=== PATIENT | female | born 1975 | race African-American/Black ===

== ENCOUNTER 2019-11-05 00:33 | Emergency (ER) | payer MEDICAID ==
[~2019-11-05] VITALS: Ht 175.3 cm; Wt 122.7 kg
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
[2019-11-05] MEDS ORDERED: HYDROcodon/IBUPROFEN 7.5/200MG 1 TAB TABLET PO ONE (01:30)
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
[2019-11-05] MEDS ORDERED: IV RINGERS SOLUTION,LACTATED 1,000 ML IV SCH (02:00)
[2019-11-05 03:05] LABS: BASO % 1 % (0-3); EOS % 0 % (0-3); HEMATOCRIT 38.7 % (36.0-47.0); HEMOGLOBIN 12.5 g/dL (12.0-15.5); LYMPH # 0.9 x10^3/uL (1.0-4.8); LYMPH % 14 % (24-48); MEAN CORPUSCULAR HEMOGLOBIN 29 pg (25-35); MEAN CORPUSCULAR HGB CONC 32 g/dL (31-37); MEAN CORPUSCULAR VOLUME 91 fL (79-100); MONO # 0.4 x10^3/uL (0.0-1.1); MONO % 6 % (0-9); NEUT # 4.8 x10^3uL (1.8-7.7); NEUT % 79 % (31-73); PLATELET COUNT 178 x10^3/uL (140-400); RED BLOOD COUNT 4.27 x10^6/uL (3.50-5.40); RED CELL DISTRIBUTION WIDTH 15.3 % (11.5-14.5); WHITE BLOOD COUNT 6.1 x10^3/uL (4.0-11.0)
[2019-11-05 03:45] LABS: CALCIUM 8.8 mg/dL (8.5-10.1); CREATININE 0.9 mg/dL (0.6-1.0); GFR 82.7; POTASSIUM 3.4 mmol/L (3.5-5.1)
[2019-11-05] MEDS ORDERED: POTASSIUM CHLORIDE 20 MEQ TABLET.ER. PO ONE ×2 (04:19→04:30)
[2019-11-05 04:27] VITALS: BP 147/88
--- NOTE | 2019-11-05 19:59 | EKG ---
[address] [address] Test Date: 2019-11-05 Test Time: 00:41:25 Pat Name: RYAN LAWSON Department: Room: Gender: F Emt Paramedic: : 1975 Requested By: GABBI MARTINEZ Order Number: [id number] Reading MD: Measurements Intervals [place] Rate: 81 P: 16 [place]: 148 QRS: -15 QRSD: 94 T: 8 QT: 380 QTc: 442 Interpretive Statements SINUS RHYTHM LEFTWARD AXIS OTHERWISE NORMAL ECG RI6.02 No previous ECG available for comparison
== END 2019-11-05 04:28 | disposition home or self-care (01) ==
LOC: ER 00:33
DX: R07.2 Precordial pain (principal); G89.11 Acute pain due to trauma; I10 Essential (primary) hypertension; E87.6 Hypokalemia; Z86.2 Personal history of diseases of the blood and blood-forming organs and certain disorders involving the immune mechanism; Y08.89XA Assault by other specified means, initial encounter; Y93.89 Activity, other specified; Y92.89 Other specified places as the place of occurrence of the external cause; Y99.8 Other external cause status
CPT/HCPCS: 36415; 71046; 80048; 82550; 84484; 85025; 93005; 99285; J7120

== ENCOUNTER → 2020-03-20 | Outpatient (CLI) | payer MEDICAID ==
[2020-03-21 07:09] LABS: ESTRADIOL LEVEL 191.1 pg/mL (.); FSH 13.8 mIU/mL (.); LUTEINIZING HORMONE 17.9 mIU/mL (.)
== END ==
LOC: LAB 15:18
PROVIDERS: ATTEND Nurse Practitioner Women's Health
DX: R23.2 Flushing (principal)
CPT/HCPCS: 36415; 82670; 83001; 83002

== ENCOUNTER → 2020-03-23 | Outpatient (CLI) | payer MEDICAID ==
--- NOTE | 2020-03-23 10:13 | RAD ---
EXAM: Bilateral screening mammogram. HISTORY: 44-year-old female presents for screening mammography. TECHNIQUE: Full-field digital craniocaudal and mediolateral oblique views of both breasts are obtained for evaluation. Computer aided detection was applied. COMPARISON: None. This is a baseline mammogram. BREAST PARENCHYMAL DENSITY: Level A - Mostly fat. FINDINGS: There is no suspicious mass, microcalcification or region of architectural distortion. IMPRESSION: BI-RADS Category 2: Benign finding(s). RECOMMENDATION: Annual mammography is recommended. If your mammogram demonstrates that you have dense breast tissue, which could hide abnormalities, and if you have other risk factors for breast cancer that have been identified, you might benefit from supplemental screening tests that may be suggested by your ordering physician. Dense breast tissue, in and of itself, is a relatively common condition. This information is not provided to cause undue concern, but rather to raise your awareness and to promote discussion with your physician regarding the presence of other risk factors, in addition to dense breast tissue. A report of your mammography results will be sent to you and your physician. You should contact your physician if you have any questions or concerns regarding this report. Mammography is a sensitive method for finding small breast cancers, but it does not detect them all and is not a substitute for careful clinical examination. A negative mammogram does not negate a clinically suspicious finding and should not result in delay in biopsying a clinically suspicious abnormality. PQRS compliance statement - Patient information was entered into a reminder system with a target due date for the next mammogram. "Our facility is accredited by the [employer] Mammography Program." Electronically signed by: Shelly Vicente MD (03/23/2020 10:11 AM) [id number]
== END ==
LOC: MAMMO 09:35
PROVIDERS: ATTEND Nurse Practitioner Women's Health
DX: Z12.31 Encounter for screening mammogram for malignant neoplasm of breast (principal)
CPT/HCPCS: 77067